=== PATIENT | male | born 1950 | race Hispanic/Latino ===

== ENCOUNTER 2021-01-03 19:41 | Emergency (ER) | payer OTHER, MEDICARE ==
[~2021-01-03] VITALS: Ht 167.6 cm; Wt 81.6 kg
[2021-01-03 19:42] VITALS: BP 165/70
== END 2021-01-03 20:17 | disposition home or self-care (01) ==
LOC: EDH 19:41
DX: Z02.83 Encounter for blood-alcohol and blood-drug test (principal)